=== PATIENT | male | born 1950 | race Caucasian/White ===

== ENCOUNTER 2016-11-16 07:34 | Day surgery (SDC) | payer OTHER ==
[~2016-11-16] VITALS: Ht 185.4 cm; Wt 75.0 kg
[~2016-11-16 07:34] MED LIST: 0.9% Sodium Chloride 1,000 ML IV SCH; ASCO100089 PO; GLUC-207 PO; MULT-1018 PO; Sodium Chloride LOK Flush 10 mL Syringe IV PRN; THYR60TA2 PO; [UNRECOGNIZED DRUG - OTHER] PO; fentaNYL-PF 50 mCg/mL 2 mL Inj IVPUSH PRN
[2016-11-16 07:53] VITALS: BP 119/69; PULSE 58; RESP 14; O2SAT 100
[2016-11-16 08:42] VITALS: BP 136/68; PULSE 56; RESP 12; O2SAT 98
[2016-11-16 08:50] VITALS: BP 119/70; PULSE 55; RESP 12; O2SAT 98
[2016-11-16 09:01] VITALS: BP 129/79; PULSE 58; RESP 12; O2SAT 99
--- NOTE | 2016-11-16 09:07 | ENDO ---
[address] [address] ENDOSCOPY PROCEDURE PATIENT: VEGA DAVE : 1950 MR#: [id number] ADMIT: 11/16/2016 JOB ID: [id number] DATE: 11/16/2016 PROCEDURE: Colonoscopy. INDICATIONS: Screening. The patient's ASA classification is 2. Mallampati score is 1. MEDICATIONS: 1. Versed 3 mg. 2. Fentanyl 75 mcg. INSTRUMENT USED: PCF H 180 AL. PREPARATION QUALITY: Was good. PROCEDURE DETAILS: After informed consent was obtained, the patient was brought into the GI suite, where he was placed on oxygen via nasal cannula and monitored with continuous pulse oximeter, telemetry and blood pressure monitoring. A time-out was performed. Then, he was placed in the left lateral decubitus position and medications were administered for sedation. Digital rectal examination with palpation of the prostate was performed, which was unremarkable. The colonoscope was then inserted into the rectum and advanced under direct visualization to the cecum, which was identified by the presence of the ileocecal valve and appendiceal orifice. Once the cecum was reached, the colonoscope was withdrawn back to the rectum as mucosa and lumen examined. In the rectum, retroflexion was performed. Following retroflexion, remaining air in the rectum was suctioned, and the procedure was completed. FINDINGS: 1. In the ascending colon, there was a diminutive polyp that was removed with cold biopsy forceps. 2. In the transverse colon, there was a diminutive polyp that was removed cold biopsy forceps. IMPRESSION: 1. Ascending colon polyp. 2. Transverse colon polyp. RECOMMENDATIONS: Repeat colonoscopy pending polyp pathology results. COMPLICATIONS: None. ESTIMATED BLOOD LOSS: Less than 5 mL.
--- NOTE | 2016-11-17 14:31 | PATH ---
SURGICAL PATHOLOGY Attending Physician:Aashish Espinoza CASE STATUS: Signed Out PATIENT NAME: PRADIP DAVE PID: [id number] : 1950 DATE COLLECTED:11/16/2016 20:30 SPECIMEN: 1: Colon, Biopsy 2: Colon, Biopsy CLINICAL HISTORY: POLYP 1). ASCENDING COLON POLYP 2). TRANSVERSE COLON POLYP FINAL DIAGNOSIS: 1.ASCENDING COLON POLYP: POLYPOID-SHAPED FRAGMENT OF COLON MUCOSA SECONDARY TO MARKED SUBMUCOSAL LYMPHOID HYPERPLASIA. NEGATIVE FOR DYSPLASIA AND MALIGNANCY. 2.TRANSVERSE COLON POLYP: POLYPOID-SHAPED FRAGMENT OF COLON MUCOSA SECONDARY TO PROMINENT SUBMUCOSAL LYMPHOID HYPERPLASIA. NEGATIVE FOR DYSPLASIA AND MALIGNANCY. ICD10 CODE K63.5 NOTE: As part of a routine quality rep, Dr. Pradip Liao has also reviewed this case and agrees with the diagnosis. GROSS DESCRIPTION: The specimen is received in two formalin filled containers labeled with the patient's name. 1). The specimen is sublabeled "ascending colon polyp" and consists of 2 portions of tissue which aggregate to 0.4 x 0.4 x 0.2 CM. The specimen is entirely submitted in cassettes 1A. 2). The specimen is sublabeled "transverse colon polyp" and consists of a 0.3 x 0.3 x 0.2 CM portion of tissue which is entirely submitted in cassette 2A. 11/16/2016 DAC MICRO DESCRIPTION: See diagnosis. ICD-9 CODES: CPT CODES: 1: 15486 2: 19534 Electronically Signed Out Jorge Alberto Harrington MD [facility] [address], [place] [address] Technical component performed at [facility], [facility] [address], [address]
== END 2016-11-16 23:59 | disposition home or self-care (01) ==
LOC: END 07:34
PROVIDERS: ATTEND Internal Medicine Gastroenterology
DX: Z12.11 Encounter for screening for malignant neoplasm of colon (principal); K63.5 Polyp of colon; E03.9 Hypothyroidism, unspecified
CPT/HCPCS: 45380; G0500; J2250; J7030